=== PATIENT | male | born 1990 | race African-American/Black ===

== ENCOUNTER → 2020-07-05 | Outpatient (CLI) | payer BC ==
--- NOTE | 2020-07-05 13:06 | RAD ---
INDICATION: Reason: COVID+, SHORT OF BREATH, COUGH / Spl. Instructions: / History: COMPARISON: None. FINDINGS: 2 view of chest obtained. Cardiac silhouette is unremarkable. There is some mild haziness at the lower lungs. No gross osseous destructive lesion. IMPRESSION: * Mild haziness of the bilateral lower lungs. This is largely likely secondary to overlap of soft tissue structures but would be difficult to exclude mild groundglass infiltrate given this finding. Electronically signed by: Donald Schwartz MD (07/05/2020 1:03 PM) [id number]
== END ==
LOC: RAD 10:32
PROVIDERS: ATTEND Internal Medicine
DX: R06.02 Shortness of breath (principal)
CPT/HCPCS: 71046